=== PATIENT | female | born 1990 | race African-American/Black ===

== ENCOUNTER 2016-09-08 10:36 | Emergency (ER) | payer SELFPAY ==
--- NOTE | 2016-09-08 10:41 | ED Physician Documentation ---
General Adult - HISTORIAN Historian: paramedics - HPI Stated Complaint: high blood sugar Chief Complaint: General Adult Onset: hours Timing: still present Severity: moderate Further Comments: yes (Pt is a 25 yo female with DMI and hx DKA who presented obtunded with [id number] by accucheck. Pt is poorly compliant with health care and ran out of insulin a few weeks ago. Pt also has a significant wound on the plantar surface of her R foot. Pt states that she had surgery for an infection in her foot about 4 weeks ago, and never returned for follow-up or to have the wound reassessed and redressed because she didn't have a ride to [place]. Pt had been on amoxicillin, she says, after the surgery. She now also c/o diarrhea, raising concern for C. diff.) - ROS CONST: weakness, other (malaise) EYES/ENT: none CVS/RESP: none GI/: nausea, diarrhea MS/SKIN/LYMPH: other (foot wound, non-healing) - PAST HX Past History: other (DMI with DKA; HTN; R foot infection.) Surgeries/Procedures: other (recent R foot surgery for infection) Allergies/Adverse Reactions: Allergies Allergy/AdvReac Type Severity Reaction Status Date / Time No Known Allergies Allergy Verified 09/08/16 10:53 Home Medications: Ambulatory Orders Medication Instructions Recorded Insulin Aspart [Novolog Flexpen] 5 - 10 unit SQ TID #15 ml 03/30/16 Insulin Glargine,Hum.rec.anlog 100 unit SQ D #15 ml 03/30/16 [Lantus Solostar] - SOCIAL HX Smoking History: cigarettes - FAMILY HX Family History: No - VITAL SIGNS Vital Signs: Vital Signs Temp Pulse Resp BP Pulse Ox 123/67 03/30/16 10:55 - REVIEWED ASSESSMENTS Nursing Assessment Reviewed: Yes Vitals Reviewed: Yes Progress - Progress Progress: 1 L NS IVF Zofran 4 mg IV Regular Insulin 10 units IV VBG pH=7.32 Glucose 590-->[address] Svitlana Perez. General Adult Physical Exam - PHYSICAL EXAM GENERAL APPEARANCE: moderate distress EENT: eye inspection normal, ENT inspection normal, pharynx normal NECK: normal inspection, supple RESPIRATORY: no resp distress, chest non-tender, breath sounds normal CVS: tachycardia ABDOMEN: soft, no organomegaly, normal bowel sounds BACK: normal inspection, no CVA tenderness SKIN: other (non-healing wound, plantar surface R foot) EXTREMITIES: other (non-healing wound, plantar surface R foot) NEURO: oriented X3, motor nml, sensation nml Discharge Clincal Impression: Hyperglycemia, non-healing R foot wound Type 1 diabetes mellitus Qualifiers: Diabetes mellitus complication status: with unspecified complications Qualified Code(s): E10.8 - Type 1 diabetes mellitus with unspecified complications Referrals: Primary Doctor,No [Primary Care Provider] - Home Medications: Ambulatory Orders Insulin Aspart [Novolog Flexpen] 5 - 10 unit SQ TID #15 ml 03/30/16 Insulin Glargine,Hum.rec.anlog [Lantus Solostar] 100 unit SQ D #15 ml 03/30/16 Condition: Stable Disposition: 02 XFER SHT-TRM HOSP Decision to Admit: NO Decision Time: 12:46
[2016-09-08] MEDS ORDERED: 0.9 % SODIUM CHLORIDE 1,000 ML IV ONE (10:42)
[2016-09-08] MEDS ORDERED: INSULIN REGULAR, HUMAN 100 UNIT/ML 3ML VIAL IV ONE (10:44)
[2016-09-08] MEDS ORDERED: FAMOTIDINE/PF 20 MG/2 ML VIAL ONE (11:30)
[2016-09-08] MEDS ORDERED: ONDANSETRON HCL/PF 4 MG/ 2ML VIAL ONE (11:30)
[2016-09-08] MEDS ORDERED: FAMOTIDINE/PF 20 MG/2 ML VIAL IVP ONE (11:31)
[2016-09-08] MEDS ORDERED: ONDANSETRON HCL/PF 4 MG/ 2ML VIAL IVP ONE (11:31)
[2016-09-08 11:46] LABS: BASOPHILS % 0.4 (0.0-1.5); EOSINOPHILS % 2.4 % (0.0-6.8); LYMPHOCYTES # 1.9 # k/uL (0.6-4.0); MEAN CORPUSCULAR HEMOGLOBIN 24.1 pg (28.0-34.0); MONOCYTES # 0.4 # k/uL (0.0-0.9); MONOCYTES % 5.4 % (0.0-11.0); NEUTROPHILS # 5.8 # k/uL (1.4-7.7)
[2016-09-08 11:50] LABS: APPEARANCE,URINE Clear (CLEAR); COLOR,URINE Yellow (YELLOW); OCCULT BLOOD,URINE 2+ (NEGATIVE); UROBILINOGEN URINE 0.2 Eu (0.2-1.0)
[2016-09-08 12:02] LABS: eGFR (African) > 60; eGFR (Non-African) 44
[2016-09-08 13:11] VITALS: BP 117/73
[2016-09-09 09:30] LABS: PH BG VENOUS 7.32 (7.32-7.43)
== END 2016-09-08 13:00 | disposition short-term general hospital (02) ==
LOC: ED 10:36
DX: E10.65 Type 1 diabetes mellitus with hyperglycemia (principal); E10.621 Type 1 diabetes mellitus with foot ulcer; L97.419 Non-pressure chronic ulcer of right heel and midfoot with unspecified severity
CPT/HCPCS: 80053; 81002; 85025; J1815; J2405; J7030; 36415; 82805; 96361; 96365; 96375; 99283; S0028; S1016

== ENCOUNTER 2016-10-23 09:58 | Emergency (ER) | payer OTHER ==
[2016-10-23] MEDS ORDERED: ACETAMINOPHEN 500 MG TABLET PO ONE (10:26)
[2016-10-23] MEDS ORDERED: KETOROLAC TROMETHAMINE 30 MG/1ML VIAL IVP ONE (10:26)
[2016-10-23] MEDS ORDERED: 0.9 % SODIUM CHLORIDE 1,000 ML IV ONE (10:26)
[2016-10-23 10:30] VITALS: BP 140/98
[2016-10-23 10:40] LABS: BASOPHILS % 0.4 (0.0-1.5); EOSINOPHILS % 2.8 % (0.0-6.8); LYMPHOCYTES # 1.9 # k/uL (0.6-4.0); MEAN CORPUSCULAR HEMOGLOBIN 23.4 pg (28.0-34.0); MONOCYTES # 0.3 # k/uL (0.0-0.9); MONOCYTES % 4.1 % (0.0-11.0); NEUTROPHILS # 5.2 # k/uL (1.4-7.7)
[2016-10-23 10:46] LABS: eGFR (African) > 60; eGFR (Non-African) 41
--- NOTE | 2016-10-23 11:00 | ED Physician Documentation ---
General Adult - HISTORIAN Historian: patient - HPI Stated Complaint: achy all over Chief Complaint: General Adult Onset: days ago Timing: worse Further Comments: yes (25 year old female patient brought in via EMS with complaints of "achy all over". Patient somnulent, poor historian. States she was at the orthopedic doctor this week, patient cannot tell provider what surgery she had or date.) - ROS CONST: recent illness (right foot surgery) EYES/ENT: none CVS/RESP: none GI/: none MS/SKIN/LYMPH: none NEURO/PSYCH: denies: headache - PAST HX Past History: hypertension Other History: diabetes Type 2 Allergies/Adverse Reactions: Allergies Allergy/AdvReac Type Severity Reaction Status Date / Time No Known Allergies Allergy Verified 09/08/16 10:53 Home Medications: Ambulatory Orders Medication Instructions Recorded Insulin Aspart [Novolog Flexpen] 5 - 10 unit SQ TID #15 ml 03/30/16 Insulin Glargine,Hum.rec.anlog 100 unit SQ D #15 ml 03/30/16 [Lantus Solostar] - SOCIAL HX Smoking History: cigarettes - FAMILY HX Family History: No - VITAL SIGNS Vital Signs: Vital Signs Temp Pulse Resp BP Pulse Ox 98.2 F 108 H 16 140/98 99 10/23/16 10:00 10/23/16 10:00 10/23/16 10:00 10/23/16 10:00 10/23/16 10:00 - REVIEWED ASSESSMENTS Nursing Assessment Reviewed: Yes Vitals Reviewed: Yes Progress - Progress Progress: 1L NS given with Tylenol and Ibuprofen. Patient complaining of "entire body hurts". Home health nurse at bedside for QOD right foot dressing change. Will change dressing while patient is in the ER. UA shows UTI, will start IV rocephin and discharge home on ciprofloxacin po. ED Results Lab/Radiology - Lab Results Lab Results: Lab Results 10/23/16 10/23/16 10:30 10:30 WBC 7.70 K/ul K/ul (4.00-12.00) RBC 4.46 M/ul M/ul (3.90-5.20) Hgb 10.4 g/dL L g/dL (12.0-16.0) Hct 34.0 % L % (34.5-46.5) MCV 76.3 fl L fl (80.0-100.0) MCH 23.4 pg L pg (28.0-34.0) MCHC 30.6 g/dL g/dL (30.0-36.0) RDW 13.1 % % (11.3-14.3) Plt Count 236 K/mm3 K/mm3 (130-400) Neut % (Auto) 67.1 % % (39.0-79.0) Lymph % (Auto) 24.5 % % (16.0-50.0) [place] % (Auto) 4.1 % % (0.0-11.0) Eos % (Auto) 2.8 % % (0.0-6.8) Baso % (Auto) 0.4 (0.0-1.5) Neut # 5.2 # k/uL # k/uL (1.4-7.7) Lymph # 1.9 # k/uL # k/uL (0.6-4.0) [place] # 0.3 # k/uL # k/uL (0.0-0.9) Eos # 0.2 # k/uL # k/uL (0.0-0.6) Baso # 0.0 # k/uL # k/uL (0.0-0.5) Reactive Lymphs % 1.0 % % (0.0-5.0) Reactive Lymphs # 0.1 # k/uL # k/uL (0.0-0.8) Serum HCG, Qual Negative (NEGATIVE) - Orders Orders: ED Orders Category Date Time Status Place Saline Lock/IV NOW Care 10/23/16 10:26 Active CBC/PLATELET/DIFF Stat Lab 10/23/16 10:30 Completed CMP Stat Lab 10/23/16 10:30 Received INFLUENZA A&B Stat Lab 10/23/16 Uncollected Rapid Strep [GRP A STREP SCREEN] Stat Lab 10/23/16 Ordered SERUM HCG Stat Lab 10/23/16 10:30 Completed 0.9 % Sodium Chloride [Normal Saline] 1,000 ml Med 10/23/16 10:26 Discontinued IV NOW Acetaminophen [Tylenol Extra Strength] Med 10/23/16 10:26 Discontinued 1,000 mg PO NOW ONE Ketorolac Tromethamine [Toradol] Med 10/23/16 10:26 Discontinued 30 mg IVP NOW ONE General Adult Physical Exam - PHYSICAL EXAM GENERAL APPEARANCE: moderate distress EENT: eye inspection normal, ENT inspection normal, pharynx normal, no signs of dehydration, JATINDER, no nystagmus, TM's nml RESPIRATORY: no resp distress, chest non-tender, breath sounds normal CVS: reg rate & rhythm, heart sounds normal, equal pulses, no murmur, no gallop , PMI nml, no JVD, no friction rub, 24 ABDOMEN: soft, no organomegaly, normal bowel sounds, no abdominal bruit, no distension BACK: normal inspection, no CVA tenderness SKIN: normal color, warm/dry, NR, INT, PAL, DR EXTREMITIES: non-tender, normal range of motion, no evidence of injury, no edema , J, CAR STOWER NEURO: oriented X3, CN's nml as tested, motor nml, sensation nml, other ( patient sleeping on stretcher when no staff in room ) Discharge Clincal Impression: UTI (urinary tract infection) Qualifiers: Urinary tract infection type: site unspecified Hematuria presence: with hematuria Qualified Code(s): N39.0 - Urinary tract infection, site not specified ; R31.9 - Hematuria, unspecified Additional Instructions: technical support specialist your prescription and start it today Drink at least 64 oz of water daily. Avoid caffeinated beverages You may want to try Azo over the counter for urinary pain. Follow package directions Cranberry juice will help with symptoms. Tylenol every 4 hours as needed for pain/fever or ibuprofen every 6 hours as needed for pain and fever See your primary care provider for a repeat UA 48 hours after completing your antibiotic. Home Medications: Ambulatory Orders Insulin Aspart [Novolog Flexpen] 5 - 10 unit SQ TID #15 ml 03/30/16 Insulin Glargine,Hum.rec.anlog [Lantus Solostar] 100 unit SQ D #15 ml 03/30/16 Condition: Stable Disposition: 01 HOME, SELF-CARE Decision to Admit: NO Decision Time: 12:06
[2016-10-23] MEDS ORDERED: LISINOPRIL 20 MG TABLET PO ONE (11:09)
[2016-10-23 11:33] LABS: APPEARANCE,URINE Cloudy (CLEAR); COLOR,URINE Yellow (YELLOW); OCCULT BLOOD,URINE 1+ (NEGATIVE); UROBILINOGEN URINE 0.2 Eu (0.2-1.0)
[2016-10-23 11:42] LABS: AMPHETAMINE NEGATIVE ng/mL (<1000); BARBITURATES NEGATIVE ng/mL (<300); CANNABINOIDS NON NEGATIVE ng/mL (<50); COCAINE NEGATIVE ng/mL (<150); METHAMPHETAMINE NEGATIVE ng/mL (<1000); METHYLENEDIOXYMETHAMPHETAMINE NEGATIVE ng/mL (<500)
[2016-10-23 12:03] LABS: AMORPHOUS SEDIMENT,UR FEW (NEGATIVE)
[2016-10-23] MEDS ORDERED: cefTRIAXone SODIUM 1 GM in 0.9 % SODIUM CHLORIDE 50 ML IV ONE (12:05)
== END 2016-10-23 10:18 | disposition home or self-care (01) ==
LOC: ED 09:58
DX: N39.0 Urinary tract infection, site not specified (principal)
CPT/HCPCS: 80053; 80377; 81002; 84703; 85025; 87070; 87086; 87400; 87880; J0696; J1885; 96361; 96372; 99283; G0481; S1016

== ENCOUNTER 2016-10-25 12:18 | Emergency (ER) | payer OTHER ==
[2016-10-25] MEDS ORDERED: 0.9 % SODIUM CHLORIDE 1,000 ML IV ONE ×2 (12:26→13:31)
[2016-10-25] MEDS ORDERED: INSULIN REGULAR, HUMAN 100 UNIT/ML 3ML VIAL ONE (12:28)
[2016-10-25] MEDS ORDERED: INSULIN REGULAR, HUMAN 100 UNIT/ML 3ML VIAL IV ONE (12:33)
[2016-10-25 12:41] LABS: BASOPHILS % 0.3 (0.0-1.5); EOSINOPHILS % 2.7 % (0.0-6.8); LYMPHOCYTES # 1.5 # k/uL (0.6-4.0); MEAN CORPUSCULAR HEMOGLOBIN 22.6 pg (28.0-34.0); MONOCYTES # 0.3 # k/uL (0.0-0.9); MONOCYTES % 4.7 % (0.0-11.0); NEUTROPHILS # 3.6 # k/uL (1.4-7.7)
[2016-10-25 12:55] LABS: eGFR (African) > 60; eGFR (Non-African) 41
[2016-10-25] MEDS ORDERED: 0.9 % SODIUM CHLORIDE 1,000 ML IV SCH ×2 (13:00→14:30)
[2016-10-25 14:48] VITALS: BP 120/47
--- NOTE | 2016-10-25 19:55 | ED Physician Documentation ---
General Adult - HISTORIAN Historian: patient - HPI Stated Complaint: High Blood Sugar Chief Complaint: General Adult Additional Information: ran out of humalog, just using Lantus Onset: hours (2) Timing: still present Severity: moderate Modifying Factors: as above Further Comments: no - ROS CONST: no problems EYES/ENT: none CVS/RESP: none GI/: none MS/SKIN/LYMPH: none NEURO/PSYCH: denies: headache, fainting, dizziness, tingling, numbness, difficulty walking, difficulty with speech, anxiety, depression - PAST HX Past History: other (type 1 dm) Surgeries/Procedures: none Immunizations: referred to PCP Allergies/Adverse Reactions: Allergies Allergy/AdvReac Type Severity Reaction Status Date / Time No Known Allergies Allergy Verified 10/25/16 12:42 Home Medications: Ambulatory Orders Medication Instructions Recorded Insulin Aspart [Novolog Flexpen] 5 - 10 unit SQ TID #15 ml 03/30/16 Insulin Glargine,Hum.rec.anlog 100 unit SQ D #15 ml 03/30/16 [Lantus Solostar] Ciprofloxacin HCl [Cipro] 500 mg PO BID #20 tablet 10/23/16 - SOCIAL HX Smoking History: cigarettes Alcohol Use: none Drug Use: none - FAMILY HX Family History: Yes - VITAL SIGNS Vital Signs: Vital Signs Temp Pulse Resp BP Pulse Ox 98.1 F 82 18 120/47 99 10/25/16 12:20 10/25/16 14:45 10/25/16 14:45 10/25/16 14:45 10/25/16 14:45 - REVIEWED ASSESSMENTS Nursing Assessment Reviewed: Yes Vitals Reviewed: Yes Progress - Results/Orders Results/Orders: cbc, cmp, fingerstick x 3, amylase, ua, vbg ordered - Progress Progress: pt. given 2 liters ns in er, 15 units humalog ivp Critical Care Note - Critical Care Note Total Time (mins): 0 ED Results Lab/Radiology - Lab Results Lab Results: Lab Results 10/25/16 10/25/16 12:40 12:40 WBC 5.70 K/ul K/ul (4.00-12.00) RBC 4.82 M/ul M/ul (3.90-5.20) Hgb 10.9 g/dL L g/dL (12.0-16.0) Hct 39.0 % % (34.5-46.5) MCV 80.9 fl fl (80.0-100.0) MCH 22.6 pg L pg (28.0-34.0) MCHC 28.0 g/dL L g/dL (30.0-36.0) RDW 13.3 % % (11.3-14.3) Plt Count 230 K/mm3 K/mm3 (130-400) Neut % (Auto) 64.4 % % (39.0-79.0) Lymph % (Auto) 26.1 % % (16.0-50.0) [place] % (Auto) 4.7 % % (0.0-11.0) Eos % (Auto) 2.7 % % (0.0-6.8) Baso % (Auto) 0.3 (0.0-1.5) Neut # 3.6 # k/uL # k/uL (1.4-7.7) Lymph # 1.5 # k/uL # k/uL (0.6-4.0) [place] # 0.3 # k/uL # k/uL (0.0-0.9) Eos # 0.2 # k/uL # k/uL (0.0-0.6) Baso # 0.0 # k/uL # k/uL (0.0-0.5) Reactive Lymphs % 1.7 % % (0.0-5.0) Reactive Lymphs # 0.1 # k/uL # k/uL (0.0-0.8) Sodium 131 mmol/L L mmol/L (136-145) Potassium 5.1 mmol/L H mmol/L (3.5-5.0) Chloride 98 mmol/L mmol/L (98-110) Carbon Dioxide 28 mmol/L mmol/L (20-32) BUN 23 mg/dL mg/dL (10-26) Creatinine 1.6 mg/dL H mg/dL (0.4-1.5) Est GFR ( Amer) > 60 (60 - ) Est GFR (Non-Af Amer) 41 L (60 - ) Glucose 625 mg/dL H* mg/dL (70-99) Calcium 9.6 mg/dL mg/dL (8.5-10.5) Total Bilirubin 0.2 mg/dL mg/dL (0.2-1.2) AST 30 U/L U/L (0-41) ALT 21 U/L U/L (0-45) Alkaline Phosphatase 94 U/L U/L (46-116) Total Protein 8.0 g/dL g/dL (6.0-8.5) Albumin 4.1 g/dL g/dL (3.0-5.5) Amylase 50 U/L U/L (20-104) - Radiology Radiology Impressions: none ordered - Orders Orders: ED Orders Category Date Time Status Place Saline Lock/IV Now Care 10/25/16 12:33 Active AMYLASE Routine Lab 10/25/16 12:40 Completed CBC/PLATELET/DIFF Routine Lab 10/25/16 12:40 Completed CMP Routine Lab 10/25/16 12:40 Completed URINALYSIS Routine Lab 10/25/16 12:33 Ordered VENOUS BLOOD GAS Routine Lab 10/25/16 Ordered 0.9 % Sodium Chloride [Normal Saline] 1,000 ml Med 10/25/16 13:00 Discontinued IV .Q1H 0.9 % Sodium Chloride [Normal Saline] 1,000 ml Med 10/25/16 14:30 Discontinued IV .Q1H 0.9 % Sodium Chloride [Normal Saline] 1,000 ml Med 10/25/16 12:26 Discontinued IV .STK-MED 0.9 % Sodium Chloride [Normal Saline] 1,000 ml Med 10/25/16 13:31 Discontinued IV .STK-MED Chem Sticks Med 10/25/16 17:00 Discontinued 1 each CHEMQID Insulin Regular, Human [Humulin R] Med 10/25/16 12:33 Discontinued 15 unit IV NOW ONE Insulin Regular, Human [Humulin R] Med 10/25/16 12:28 Discontinued 300 unit .ROUTE .STK-MED ONE General Adult Physical Exam - PHYSICAL EXAM GENERAL APPEARANCE: mild distress EENT: eye inspection normal, ENT inspection normal, pharynx normal, no signs of dehydration, JATINDER, no nystagmus, TM's nml NECK: normal inspection, thyroid normal, supple RESPIRATORY: no resp distress, chest non-tender, breath sounds normal CVS: reg rate & rhythm, heart sounds normal, equal pulses, no murmur, no gallop , PMI nml ABDOMEN: soft, no organomegaly, normal bowel sounds, no abdominal bruit, no distension, non-tender BACK: normal inspection, no CVA tenderness SKIN: warm/dry, normal color EXTREMITIES: non-tender, normal range of motion, no evidence of injury NEURO: oriented X3, CN's nml as tested, motor nml, sensation nml Discharge Clincal Impression: Uncontrolled diabetes mellitus Qualifiers: Diabetes mellitus type: type 1 Diabetes mellitus complication status: with hyperglycemia Qualified Code(s): E10.65 - Type 1 diabetes mellitus with hyperglycemia Referrals: Primary Doctor,No [Primary Care Provider] - 2 Days Home Medications: Ambulatory Orders Insulin Aspart [Novolog Flexpen] 5 - 10 unit SQ TID #15 ml 03/30/16 Insulin Glargine,Hum.rec.anlog [Lantus Solostar] 100 unit SQ D #15 ml 03/30/16 Ciprofloxacin HCl [Cipro] 500 mg PO BID #20 tablet 10/23/16 Comments: discharged with recommendation to use novalog insulin now that it has been filled todfay according to directions by her primary care provider Condition: Stable Disposition: 01 HOME, SELF-CARE Decision to Admit: NO Decision Time: 14:40
[2016-10-26 05:47] LABS: PH BG VENOUS 7.3 (7.32-7.43)
== END 2016-10-25 14:45 | disposition home or self-care (01) ==
LOC: ED 12:18
DX: E10.65 Type 1 diabetes mellitus with hyperglycemia (principal)
CPT/HCPCS: 36415; 80053; 82150; 82805; 85025; J1815; J7030; 96361; 96372; 99283; S1016